=== PATIENT | female | born 1995 | race Caucasian/White ===

== ENCOUNTER 2016-07-01 09:54 | Emergency (ER) | payer MEDICAID ==
[~2016-07-01] VITALS: Ht 165.1 cm; Wt 56.8 kg
[~2016-07-01 09:54] MED LIST: ANTIVERT 25MG25 MG PO; COLACE100 MG/10 PO; DIAMOX250 MG PO; KEPPRA PO; NO HOME MEDICATIONS; NORCO 325 MG-51 TAB PO; PHENERGAN25 MG/M1 IJ; PRENATAL1 TA1 PO; UNABLE; ZOFRAN 4MG T4 MG/TAB PO
[2016-07-01 10:05] VITALS: BP 118/56; TEMP 98
[2016-07-01 11:06] LABS: ALANINE AMINOTRANSFERASE 21 U/L (9-52); ALBUMIN 4.6 gm/dL (3.5-5.0); ALKALINE PHOSPHATASE 45 U/L (50-136); ANION GAP 13 mmol/L (7-16); BILIRUBIN,TOTAL 0.6 mg/dL (0.0-1.0); BLOOD UREA NITROGEN 8 mg/dL (7-17); C-REACTIVE PROTEIN < 0.5 mg/dL (0.0-0.9); CALCIUM 9.5 mg/dL (8.4-10.2); CARBON DIOXIDE 22 mmol/L (22-30); CHLORIDE 105 mmol/L (98-107); CREATININE, serum 0.56 mg/dL (0.52-1.25); GLUCOSE 113 mg/dL (74-106); LIPASE 44 U/L (23-300); POTASSIUM 4.8 mmol/L (3.4-5.0); SODIUM 140 mmol/L (137-145); TOTAL PROTEIN 7.5 gm/dL (6.4-8.2)
[2016-07-01 11:27] LABS: BASO % 0.3 % (0.0-2.0); EOS % 0.2 % (0-4.0); GRAN # 5.5 (1.4-6.5); GRAN % 82.8 % (42.2-75.2); HEMATOCRIT 37.2 % (35.0-45.0); HEMOGLOBIN 11.6 g/dl (12.0-15.0); LYMPH # 0.7 (1.2-3.4); MEAN CELL VOLUME 84 fl (80.0-95.0); MEAN CORPUSCULAR HEMOGLOBIN 26 pg (26.0-32.0); MEAN CORPUSCULAR HGB CONC 31 g/dl (33.0-37.0); MEAN PLATELET VOLUME 10.8 fl (7.4-10.4); MONO # 0.4 (0.1-0.6); MONO % 6.4 % (1.7-9.3); PLATELET COUNT 296 K/mm3 (130-400); RED BLOOD COUNT 4.41 M/mm3 (4.10-5.30); REDCELL DISTRIBUTION WIDTH-CV 12.8 % (11.5-14.5); WHITE BLOOD COUNT 6.6 K/mm3 (4.8-10.8)
[2016-07-01] MEDS ORDERED: PHENERGAN 25 TA25 MG PO (11:37)
[2016-07-01 12:05] VITALS: PULSE 70
== END 2016-07-01 12:05 | disposition home or self-care (01) ==
LOC: COL.ER 09:54
PROVIDERS: Physician Assistant
DX: R10.84 Generalized abdominal pain (principal); R19.7 Diarrhea, unspecified; R11.0 Nausea
CPT/HCPCS: J2405; J2550; J7030

== ENCOUNTER 2016-12-30 15:59 | Emergency (ER) | payer MEDICAID ==
[~2016-12-30] VITALS: Ht 165.1 cm; Wt 58.2 kg
[~2016-12-30 15:59] MED LIST changes: +PHENERGAN 25 TA25 MG PO
[2016-12-30 16:02] VITALS: BP 124/69; TEMP 98.1
[2016-12-30 17:05] LABS: COLLECTION METHOD CLEAN CATCH
[2016-12-30] MEDS ORDERED: ZOFRAN 4MG T4 MG/TAB PO (17:05)
[2016-12-30] MEDS ORDERED: NEXPLANON68 MG ID (17:06)
[2016-12-30 17:09] LABS: BASO % 0.5 % (0.0-2.0); EOS # 0.1 (0.0-0.7); EOS % 2.6 % (0-4.0); GRAN # 2.2 (1.4-6.5); GRAN % 56.6 % (42.2-75.2); HEMOGLOBIN 11.7 g/dl (12.0-15.0); LYMPH # 1.2 (1.2-3.4); LYMPH % 31.9 % (20.0-51.0); MEAN CELL VOLUME 80 fl (80.0-95.0); MEAN CORPUSCULAR HEMOGLOBIN 25 pg (26.0-32.0); MEAN CORPUSCULAR HGB CONC 32 g/dl (33.0-37.0); MEAN PLATELET VOLUME 10.6 fl (7.4-10.4); MONO # 0.3 (0.1-0.6); MONO % 8.1 % (1.7-9.3); PLATELET COUNT 263 K/mm3 (130-400); RED BLOOD COUNT 4.63 M/mm3 (4.10-5.30); WHITE BLOOD COUNT 3.8 K/mm3 (4.8-10.8)
[2016-12-30 17:23] LABS: ADJUSTED CALCIUM 8.8 mg/dL (8.4-10.2); ALANINE AMINOTRANSFERASE 20 U/L (9-52); ALBUMIN 4.9 gm/dL (3.5-5.0); ALKALINE PHOSPHATASE 56 U/L (50-136); ANION GAP 13 mmol/L (7-16); BILIRUBIN,TOTAL 0.5 mg/dL (0.0-1.0); BLOOD UREA NITROGEN 17 mg/dL (7-17); CALCIUM 9.5 mg/dL (8.4-10.2); CARBON DIOXIDE 26 mmol/L (22-30); CHLORIDE 100 mmol/L (98-107); CREATININE, serum 0.77 mg/dL (0.52-1.25); GLUCOSE 86 mg/dL (74-106); LIPASE 60 U/L (23-300); POTASSIUM 3.9 mmol/L (3.4-5.0); SODIUM 139 mmol/L (137-145); TOTAL PROTEIN 8.1 gm/dL (6.4-8.2)
[2016-12-30 17:31] LABS: MUCOUS Present /lpf; PH 5 (5-8); SQUAMOUS EPITHELIAL 0-2 /hpf; URINE APPEARANCE Clear; URINE BACTERIA None Seen /hpf; URINE BILIRUBIN Negative (NEGATIVE); URINE BLOOD Negative (NEGATIVE); URINE COLOR Yellow; URINE GLUCOSE Negative (NEGATIVE); URINE KETONE Negative (NEGATIVE); URINE LEUKOCYTE ESTERASE Negative (NEGATIVE); URINE PROTEIN(semi-quant) Negative (NEGATIVE); URINE RBC 0-2 /hpf; URINE WBC 0-2 /hpf
[2016-12-30 17:36] LABS: C-REACTIVE PROTEIN < 0.5 mg/dL (0.0-0.9)
[2016-12-30] MEDS ORDERED: PROTONIX 40MG T40 MG PO (18:15)
[2016-12-30 18:37] VITALS: PULSE 74
== END 2016-12-30 18:40 | disposition home or self-care (01) ==
LOC: COL.ER 15:59
PROVIDERS: Emergency Medicine
DX: R10.13 Epigastric pain (principal); Z32.02 Encounter for pregnancy test, result negative
CPT/HCPCS: C9113; J2405; J7030

== ENCOUNTER 2018-08-21 16:38 | Emergency (ER) | payer SELFPAY ==
[~2018-08-21] VITALS: Ht 165.1 cm; Wt 59.1 kg
[~2018-08-21 16:38] MED LIST changes: +NEXPLANON68 MG ID; +PROTONIX 40MG T40 MG PO
[2018-08-21 16:45] VITALS: TEMP 98.4
[2018-08-21 18:17] VITALS: BP 101/63
[2018-08-21 18:35] LABS: BASO % 0.5 % (0.0-2.0); EOS % 0.3 % (0-4.0); GRAN # 2.8 (1.4-6.5); GRAN % 71.9 % (42.2-75.2); HEMOGLOBIN 12.5 g/dl (12.5-16.0); LYMPH # 0.7 (1.2-3.4); LYMPH % 19.2 % (20.0-51.0); MEAN CELL VOLUME 83 fl (80.0-100.0); MEAN CORPUSCULAR HEMOGLOBIN 29 pg (27.0-31.0); MEAN CORPUSCULAR HGB CONC 35 g/dl (33.0-37.0); MEAN PLATELET VOLUME 10.3 fl (7.4-10.4); MONO # 0.3 (0.1-0.6); MONO % 7.8 % (1.7-9.3); PLATELET COUNT 209 K/mm3 (130-400); RED BLOOD COUNT 4.36 M/mm3 (4.10-5.30); REDCELL DISTRIBUTION WIDTH-CV 11.9 % (11.5-14.5)
[2018-08-21 18:43] LABS: ALANINE AMINOTRANSFERASE 9 U/L (9-52); ALBUMIN 4.2 gm/dL (3.5-5.0); ALKALINE PHOSPHATASE 37 U/L (50-136); ANION GAP 11 mmol/L (7-16); AST,SGOT 14 U/L (15-37); BILIRUBIN,TOTAL 0.5 mg/dL (0.0-1.0); BLOOD UREA NITROGEN 9 mg/dL (7-17); CALCIUM 9.2 mg/dL (8.4-10.2); CARBON DIOXIDE 24 mmol/L (22-30); CHLORIDE 105 mmol/L (98-107); CREATININE, serum 0.53 (0.52-1.25); GLUCOSE 84 mg/dL (74-106); POTASSIUM 3.8 mmol/L (3.4-5.0); SODIUM 140 mmol/L (137-145); TOTAL PROTEIN 7.2 gm/dL (6.4-8.2)
[2018-08-21 18:45] LABS: C-REACTIVE PROTEIN < 0.5 mg/dL (0.0-0.9); HEMATOCRIT 36.1 % (37.0-47.0)
[2018-08-21 19:09] LABS: COLLECTION METHOD CLEAN CATCH
[2018-08-21 19:26] LABS: MUCOUS Present /lpf; PH 5 (5-8); URINE APPEARANCE Clear; URINE BACTERIA None Seen /hpf; URINE BILIRUBIN Negative (NEGATIVE); URINE BLOOD Negative (NEGATIVE); URINE COLOR Amber; URINE GLUCOSE Negative (NEGATIVE); URINE KETONE 2+ (NEGATIVE); URINE LEUKOCYTE ESTERASE Negative (NEGATIVE); URINE NITRATE Negative (NEGATIVE); URINE PROTEIN(semi-quant) 1+ (NEGATIVE); URINE RBC 0-2 /hpf
[2018-08-21 20:02] VITALS: PULSE 75
== END 2018-08-21 20:02 | disposition home or self-care (01) ==
LOC: COL.ER 16:38
PROVIDERS: Emergency Medicine
DX: O21.9 Vomiting of pregnancy, unspecified (principal); Z3A.00 Weeks of gestation of pregnancy not specified
CPT/HCPCS: J2405; J7030

== ENCOUNTER → 2020-05-30 | Outpatient (CLI) | payer SELFPAY ==
[2020-05-30 16:10] LABS: ALBUMIN 4.5 gm/dL (3.5-5.0); BILIRUBIN,TOTAL 0.3 mg/dL (0.0-1.0); CALCIUM 9.7 mg/dL (8.4-10.2); CREATININE, serum 0.68 (0.52-1.25); POTASSIUM 4.2 mmol/L (3.4-5.0); TOTAL PROTEIN 7.8 gm/dL (6.4-8.2)
== END ==
LOC: COL.LAB 15:19
PROVIDERS: Physician Assistant
DX: R10.11 Right upper quadrant pain (principal)

== ENCOUNTER → 2023-03-25 | Outpatient (CLI) | payer SELFPAY | LOC: COL.LAB 16:52 | DX: O46.90 Antepartum hemorrhage, unspecified, unspecified trimester (principal); Z3A.00 Weeks of gestation of pregnancy not specified ==

== ENCOUNTER → 2023-04-07 | Outpatient (CLI) | payer SELFPAY ==
[2023-04-07 14:33] LABS: HEMOGLOBIN 11.8 g/dl (12.5-16.0); MEAN CELL VOLUME 84 fl (80.0-100.0); MEAN CORPUSCULAR HEMOGLOBIN 29 pg (27-31); MEAN CORPUSCULAR HGB CONC 34 g/dl (33.0-37.0); MEAN PLATELET VOLUME 10.2 fl (7.4-10.4); PLATELET COUNT 208 K/mm3 (130-400); RED BLOOD COUNT 4.12 M/mm3 (4.10-5.30); REDCELL DISTRIBUTION WIDTH-CV 11.9 % (11.5-14.5)
[2023-04-07 14:34] LABS: HEMATOCRIT 34.4 % (37.0-47.0)
== END ==
LOC: COL.LAB 14:01
PROVIDERS: Physician Assistant
DX: Z32.01 Encounter for pregnancy test, result positive (principal); R10.32 Left lower quadrant pain

== ENCOUNTER → 2023-04-15 | Outpatient (CLI) | payer SELFPAY | LOC: COL.RAD 12:14 | DX: Z32.01 Encounter for pregnancy test, result positive (principal); R10.30 Lower abdominal pain, unspecified; Z3A.12 12 weeks gestation of pregnancy ==